=== PATIENT | female | born 1970 | race Caucasian/White ===

== ENCOUNTER 2016-09-28 20:28 | Emergency (ER) | payer OTHER | END 2016-09-28 21:15 | disposition home or self-care (01) | LOC: ER1 20:28 | DX: L02.416 Cutaneous abscess of left lower limb (principal); F43.10 Post-traumatic stress disorder, unspecified; F31.9 Bipolar disorder, unspecified; F17.210 Nicotine dependence, cigarettes, uncomplicated; Z88.0 Allergy status to penicillin | CPT/HCPCS: 99282 ==

== ENCOUNTER 2021-10-26 05:39 | Emergency (ER) | payer OTHER ==
[~2021-10-26 05:39] MED LIST: BACTRIM DS TAB1 EACH PO; KEFLEX CAP 500500 MG PO; LEVOXYL50 MCG PO; LEXAPRO10 MG PO; NAPROSYN500 MG PO; PROTONIX40 MG PO; TRILEPTAL300 MG PO; VITAMIN D35000 UNI1 PO
[2021-10-26] MEDS ORDERED: CEPHALEXIN500 M1 PO (06:16)
== END 2021-10-26 06:55 | disposition home or self-care (01) ==
LOC: ER1 05:39
DX: L02.31 Cutaneous abscess of buttock (principal); F17.210 Nicotine dependence, cigarettes, uncomplicated
CPT/HCPCS: 87070; 87205; 96372; 99283; J0696

== ENCOUNTER 2021-11-25 17:01 | Emergency (ER) | payer OTHER ==
[~2021-11-25 17:01] MED LIST changes: +CEPHALEXIN500 M1 PO
[2021-11-25 19:13] LABS: HEMOGLOBIN 14.9 gm/dl (12.3-15.3); RED BLOOD COUNT 4.8 M/UL (4.00-5.10); WHITE BLOOD COUNT 13.4 K/UL (4.5-11.0)
[2021-11-25 19:43] LABS: BUN/CREATININE RATIO 9 (0-10)
[2021-11-25] MEDS ORDERED: BACTRIM DS TAB1 EACH PO (21:34)
[2021-11-25] MEDS ORDERED: CEPHALEXIN500 M1 PO (21:34)
== END 2021-11-25 22:00 | disposition home or self-care (01) ==
LOC: ER1 17:01
DX: L02.31 Cutaneous abscess of buttock (principal); N39.0 Urinary tract infection, site not specified; R31.9 Hematuria, unspecified; F17.210 Nicotine dependence, cigarettes, uncomplicated; Z20.822 Contact with and (suspected) exposure to COVID-19
CPT/HCPCS: 0240U; 80053; 81001; 82150; 83605; 83690; 85025; 85610; 87086; 93005; 99283